=== PATIENT | male | born 1990 | race Caucasian/White ===

== ENCOUNTER 2020-11-27 12:11 | Emergency (ER) | payer BC ==
[~2020-11-27] VITALS: Ht 170.2 cm; Wt 70.3 kg
[2020-11-27 12:17] VITALS: BP 150/90
[2020-11-27] MEDS ORDERED: CEPH500C2 PO (13:23)
--- NOTE | 2020-11-27 14:00 | NUR ---
Patient discharged to home in stable condition. Written and verbal after care instructions given. Patient verbalizes understanding of instruction.
== END 2020-11-27 14:36 | disposition home or self-care (01) ==
LOC: ER 12:14
DX: L03.115 Cellulitis of right lower limb (principal); L03.116 Cellulitis of left lower limb; Z88.6 Allergy status to analgesic agent
CPT/HCPCS: 73590-TC

== ENCOUNTER 2020-11-27 19:42 | Inpatient (IN) | payer BC ==
[~2020-11-27] VITALS: Ht 170.2 cm; Wt 73.5 kg
[~2020-11-27 19:42] MED LIST: CEPH500C2 PO
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
[2020-11-27] MEDS ORDERED: VANCOMYCIN HCL 1 GM in IV D5W 260 ML IV ONE (22:00)
[2020-11-27] MEDS ORDERED: VANCOMYCIN 1 GM VIAL ONE (22:05)
[2020-11-27 22:24] LABS: BASOPHILS # (AUTO) 0.1 K/uL (0.0-0.2); BASOPHILS % (AUTO) 0.7 % (0.0-2.0); EOSINOPHILS % (AUTO) 0.1 % (0.0-6.0); HEMATOCRIT 43 % (39-51); HEMOGLOBIN 14.6 g/dL (13.5-17.5); LYMPHOCYTES # (AUTO) 1.5 K/uL (0.8-4.8); LYMPHOCYTES % (AUTO) 14.3 % (20.0-44.0); MEAN CORPUSCULAR HGB CONC 34 g/dl (31.0-36.0); MEAN CORPUSCULAR VOLUME 92 fL (80-96); MONOCYTES # (AUTO) 0.8 K/uL (0.1-1.30); NEUTROPHILS % (AUTO) 76.9 % (43.0-81.0); PLATELET COUNT (AUTO) 177 K/uL (150-450); RED BLOOD CELL COUNT(AUTO) 4.69 MIL/uL (4.5-6.0); WHITE BLOOD COUNT (AUTO) 10.3 K/uL (4.3-11.0)
--- NOTE | 2020-11-27 22:28 | NUR ---
PANEL PAGED PER ER MD ORDER.
--- NOTE | 2020-11-27 22:31 | NUR ---
FAVIAN CAMPBELL TALKING TO CLARENCE POTTS NP REGARDING PT ADMISSION.
[2020-11-27 22:40] LABS: CALCIUM, SERUM 8.7 mg/dL (8.5-10.1); CREATININE 1.1 mg/dL (0.6-1.3); POTASSIUM 4.9 mmol/L (3.5-5.1)
[2020-11-27 22:54] LABS: ALBUMIN 3.9 g/dL (3.4-5.0); BILIRUBIN,DIRECT 0.1 mg/dL (0.0-0.2); BILIRUBIN,TOTAL 0.5 mg/dL (0.2-1.0)
--- NOTE | 2020-11-27 23:57 | NUR ---
verbal order 1gm matt
[2020-11-27] MEDS ORDERED: ACETAMINOPHEN ES 500 MG TABLET ONE (23:58)
[2020-11-28] MEDS ORDERED: KETOROLAC TROMETHAMINE INJ 30 MG/ML VIAL IV ONE
[2020-11-28] MEDS ORDERED: KETOROLAC TROMETHAMINE 15 MG/ML VIAL ONE (00:12)
--- NOTE | 2020-11-28 01:29 | NUR ---
f/u with house sup, no bed at the moment
[2020-11-28] MEDS ORDERED: ACETAMINOPHEN 325 MG TABLET PO ONE (01:30)
--- NOTE | 2020-11-28 02:30 | NUR ---
Patient is resting comfortably in bed with eyes closed. Easily aroused. VSS
--- NOTE | 2020-11-28 04:30 | NUR ---
Patient is resting comfortably in bed with eyes closed. Easily aroused. VSS
--- NOTE | 2020-11-28 05:40 | NUR ---
M/S 323-2
--- NOTE | 2020-11-28 05:54 | NUR ---
gave report to Audie Fernández, for brigette
[2020-11-28 06:19] VITALS: BP 114/59
[2020-11-28] MEDS ORDERED: ACETAMINOPHEN 325 MG TABLET PO PRN (06:30)
[2020-11-28] MEDS ORDERED: MAGNESIUM HYDROXIDE 30 ML UDC PO PRN (06:30)
[2020-11-28] MEDS ORDERED: MAG HYDROX/AL HYDROX/SIMETH 30 ML UDC PO PRN (06:30)
[2020-11-28] MEDS ORDERED: HYDROCODONE/APAP 5/325MG TABLET PO PRN (06:30)
[2020-11-28] MEDS ORDERED: ONDANSETRON HCL/PF 4 MG/2 ML VIAL IVP PRN (06:30)
[2020-11-28 07:18] LABS: BASOPHILS % (AUTO) 0.6 % (0.0-2.0); HEMATOCRIT 42 % (39-51); HEMOGLOBIN 14.4 g/dL (13.5-17.5); LYMPHOCYTES # (AUTO) 0.9 K/uL (0.8-4.8); LYMPHOCYTES % (AUTO) 12.1 % (20.0-44.0); MEAN CORPUSCULAR HGB CONC 34 g/dl (31.0-36.0); MEAN CORPUSCULAR VOLUME 92 fL (80-96); MONOCYTES # (AUTO) 0.7 K/uL (0.1-1.30); MONOCYTES % (AUTO) 9.4 % (2.0-12.0); NEUTROPHILS # (AUTO) 5.6 K/uL (1.8-8.9); NEUTROPHILS % (AUTO) 77.9 % (43.0-81.0); PLATELET COUNT (AUTO) 161 K/uL (150-450); RED BLOOD CELL COUNT(AUTO) 4.58 MIL/uL (4.5-6.0); WHITE BLOOD COUNT (AUTO) 7.1 K/uL (4.3-11.0)
[2020-11-28] MEDS ORDERED: PANTOPRAZOLE 40 MG TABLET.DR PO SCH (07:30)
[2020-11-28 07:41] LABS: CALCIUM, SERUM 8.5 mg/dL (8.5-10.1); CREATININE 1.2 mg/dL (0.6-1.3); POTASSIUM 4.2 mmol/L (3.5-5.1)
--- NOTE | 2020-11-28 08:00 | NUR ---
m/s electric motor repairer: initial assessment received pt in bed awake, a/ox4. dx: cellulitis. right lower leg still with redness with dry wound. febrile 102.9. tylenol 650mg po given. will continue to monitor.
--- NOTE | 2020-11-28 09:00 | NUR ---
m/s agronomy instructor: notes re check temp 99.6 (0). no distress noted. pt verbalized wanting to go home.
--- NOTE | 2020-11-28 10:44 | NUR ---
m/s porter luggage: md visit visiting. dr. baldwin at bedside and wants pt to stay for a day, but and pt wants to go home today. pt feels better as stated. pt will go home this afternoon after iv antibiotic is given. pt to go home with same prescription from previous hospital visit per md.
--- NOTE | 2020-11-28 11:04 | NUR ---
m/s stock house worker: notes re check temp 99 (0). no distress noted. pt for d'c home after iv vanco.
[2020-11-28] MEDS ORDERED: VANCOMYCIN 1 GM in IV D5W 250 ML IV SCH (11:30)
--- NOTE | 2020-11-28 12:04 | NUR ---
m/s darkroom technician: notes received order to discharge pt home after dose of vancomycin antibiotic. order carried out and acknowledged. discharge instructions given to pt and verbalized understanding.
--- NOTE | 2020-11-28 12:30 | NUR ---
m/s benzene worker: notes discharge instructions given to pt and verbalized understanding. iv vanco still infusing without a/r noted.
--- NOTE | 2020-11-28 13:00 | NUR ---
m/s human resources clerk: notes iv vanco completed. iv removed with tip intact. pt refused wheelchair, wants to walk out.
--- NOTE | 2020-11-28 13:10 | NUR ---
m/s juke box servicer: discharged discharged home in stable condition accompanied by girlfriend via private car with d'c papers and belongings.
== END 2020-11-28 13:08 | disposition home or self-care (01) | DRG 603 ==
LOC: ER 19:44 → MED 11-28 05:53
PROVIDERS: ADMIT Nurse Practitioner Family
DX: L03.115 Cellulitis of right lower limb (principal); Z20.822 Contact with and (suspected) exposure to COVID-19; T24.001A Burn of unspecified degree of unspecified site of right lower limb, except ankle and foot, initial encounter; T31.0 Burns involving less than 10% of body surface; X08.8XXA Exposure to other specified smoke, fire and flames, initial encounter; Y93.A5 Activity, obstacle course; Y92.89 Other specified places as the place of occurrence of the external cause; Z88.5 Allergy status to narcotic agent; Z90.49 Acquired absence of other specified parts of digestive tract
CPT/HCPCS: 36415; 80048-TC; 80076-TC; 83605-TC; 85025-TC; 86850-TC; 87040-TC; 87081-TC; C9803; G0378; J1885; J3370; J7050; J7060